=== PATIENT | female | born 1980 | race Caucasian/White ===

== ENCOUNTER 2021-05-30 11:27 | Emergency (ER) | payer OTHER ==
[2021-05-30] MEDS ORDERED: IOPAMIDOL-300 100 ML VIAL IVP ONE (11:28)
[2021-05-30] MEDS ORDERED: IOPAMIDOL-300 100 ML VIAL ONE (11:49)
--- NOTE | 2021-05-30 11:50 | ED Physician Documentation ---
PD HPI FOCAL NEURO - Stated complaint Stated Complaint: STROKE SYMPTOMS - Chief complaint Chief Complaint: Neuro - History obtained from History obtained from: Patient - History of Present Illness Timing - onset: Enter time (1030), Today Timing - duration: Hours Timing - details: Abrupt onset, Still present Severity of deficit: Mild Weakness: Left. No: Face, Arm, Hand, Leg, Foot Numbness: Hand, Left. No: Face, Arm, Leg, Foot Associated symptoms: No: Headache, Nausea / vomiting, Seizure, Syncope, Fall, Head injury, Chest pain, Neck pain, Back pain Contributing factors: positive: Other (as known PFO). negative: Anticoagulated, Vascular dz Baseline status: positive: A&OX3, ambulatory, indep Similar symptoms before: Diagnosis (TIA) Recently seen: Other (seen in urgent care and sent directly to the ED.) - Additional information Additional information: 40-year-old female who is visiting here from [place] has a prior history of TIA related to a patent foramen ovale. She had a TIA with expressive aphasia 7 years ago. She has had no intervening symptoms and she did not have repair done. This morning at 1030 she was in the kitchen when she began to develop some numbness to her left hand and a feeling of fogginess in her brain. She was examined at the urgent care found to have some incoordination of the left hand as well and she was sent to the emergency department for stroke evaluation. The patient's states that since her arrival here her symptoms are improved to where she only has some mild numbness to her hand. Review of Systems Constitutional: denies: Fever Eyes: denies: Decreased vision Ears: denies: Ear pain Nose: denies: Congestion Throat: denies: Sore throat Cardiac: denies: Chest pain / pressure, Palpitations Respiratory: denies: Dyspnea, Cough GI: denies: Abdominal Pain, Nausea, Vomiting, Constipation, Diarrhea : denies: Dysuria, Frequency Skin: denies: Rash Musculoskeletal: denies: Neck pain, Back pain, Extremity pain Neurologic: reports: Numbness. denies: Generalized weakness, Focal weakness, Difficulty speaking, Near syncope, Syncope, Confused, Altered mental status, Headache, Head injury, LOC PD PAST MEDICAL HISTORY - Allergies Allergies/Adverse Reactions: Allergies Allergy/AdvReac Type Severity Reaction Status Date / Time clindamycin Allergy Rash Verified 05/30/21 11:39 PD ED PE NORMAL - Vitals Vital signs reviewed: Yes (hypertensive) - General General: Alert and oriented X 3, No acute distress, Well developed/nourished - HEENT HEENT: Atraumatic, PERRL, EOMI - Neck Neck: Supple, no meningeal sign, No bony TTP - Cardiac Cardiac: RRR, No murmur - Respiratory Respiratory: No respiratory distress, Clear bilaterally - Abdomen Abdomen: Normal bowel sounds, Soft, Non tender, Non distended, No organomegaly - Back Back: No CVA TTP, No spinal TTP - Derm Derm: Normal color, Warm and dry, No rash - Extremities Extremities: No deformity, No edema - Neuro Neuro: Alert and oriented X 3, chemical cell changer 2-12 intact, No motor deficit, No sensory deficit, Normal speech Eye Opening: Spontaneous Motor: Obeys Commands Verbal: Oriented GCS Score: 15 - Psych Psych: Normal mood, Normal affect NIHSS - Time Time: 11:40 - Level of Consciousness Level of consciousness: (0) Alert, Keenly responsive LOC Questions: (0) Answers both Q's correct LOC Commands: (0) Performs both correctly - Gaze Best Gaze: (0) Normal - Visual Visual: (0) No loss - Facial Palsy Facial Palsy: (0) Normal, symmetrical movement - Motor Arms (both separate) Motor Arm (right): (0) No drift Motor Arm (left): (0) No drift - Motor Legs (both separate) Motor Leg (right): (0) No drift Motor Leg (left): (0) No drift - Limb Ataxia Limb Ataxia: (0) Absent - Sensory Sensory: (1) Exwa-qo-jouwwgob loss - Best Language Best Language: (0) No aphasia - Dysarthria Dysarthria: (0) Normal - Extinction and Inattention (formally neg Extinction and inattention: (0) No abnormality - Total Score/Results Total Score/Result: 1 Results - Vitals Vitals: Vital Signs - 24 hr 05/30/21 05/30/21 11:34 12:03 Temperature 37.6 C Heart Rate 79 67 Respiratory 19 13 Rate Blood Pressure 140/84 H 118/86 H O2 Saturation 100 98 Oxygen O2 Source Room air - EKG (time done) 1151 Rate: Rate (enter#) (73) Rhythm: NSR Ischemia: Normal ST segments Compare to prior EKG: Old EKG unavailable Computer interpretation: Agree with computer - Labs Labs: Laboratory Tests 05/30/21 05/30/21 05/30/21 12:01 12:01 13:00 WBC 4.5 L RBC 4.36 Hgb 13.7 Hct 40.5 MCV 92.9 MCH 31.4 H MCHC 33.8 RDW 13.3 Plt Count 267 MPV 9.7 Neut # (Auto) 2.0 Lymph # (Auto) 1.8 Bonner # (Auto) 0.4 Eos # (Auto) 0.2 Baso # (Auto) 0.1 Absolute Nucleated RBC 0.00 Nucleated RBC % 0.0 Sodium 137 Potassium 4.0 Chloride 101 Carbon Dioxide 27 Anion Gap 9.0 BUN 11 Creatinine 0.8 Estimated GFR (MDRD) 80 L Glucose 91 Calcium 9.1 Total Bilirubin 0.6 AST 30 ALT 23 Alkaline Phosphatase 40 L Total Protein 7.3 Albumin 4.4 Globulin 2.9 Albumin/Globulin Ratio 1.5 Lipase 31 Urine Color YELLOW Urine Clarity CLEAR Urine pH 7.5 Ur Specific [place] 1.015 Urine Protein NEGATIVE Urine Glucose (UA) NEGATIVE Urine Ketones NEGATIVE Urine Occult Blood TRACE-INTA Urine Nitrite NEGATIVE Urine Bilirubin NEGATIVE Urine Urobilinogen 0.2 (NORMAL) Ur Leukocyte Esterase NEGATIVE Ur Microscopic Review NOT INDICATED Urine Culture Comments NOT INDICATED Urine HCG, Qual NEGATIVE PD MEDICAL DECISION MAKING - ED course Complexity details: reviewed results, re-evaluated patient, considered differential, d/w patient, d/w intelligence consultant ( neuro-stroke doctor recommends angios and holding tpA ) ED course: 40-year-old female with a prior TIA and known history of patent foramen ovale has symptoms consistent with another TIA today with some fogging of her sensorium, numbness and clumsiness to the left hand. The sensorium has cleared the clumsiness to the hand is cleared the strength is normal. She has some sensation of the hand continuing to wake. I discussed the case with the on-call stroke doctor Dr. Graves and she recommends administration of aspirin and a follow-up with her neurologist for repeat MRI. Departure - Departure Disposition: 01 Home, Self Care Clinical Impression: TIA (transient ischemic attack) Condition: Stable Instructions: ED Transient Ischemic Attack Follow-Up: Your, neurologist and rn house supervisor [Other] Comments: Christiano, today it looks like you have had another TIA. The expectation is to have full recovery. The recommendation from Dr. Graves is to take an aspirin 81 mg daily and to follow-up with your neurologist regarding a repeat MRI of the brain. Consider a repair of the patent foramen ovale and discussed this with your rn house supervisor.
--- NOTE | 2021-05-30 12:02 | CT Report ---
PROCEDURE: Head W/O Stroke Protocol INDICATIONS: stoke s/sx TECHNIQUE: Noncontrast 4.5 mm thick angled axial sections acquired from the foramen magnum to the vertex, with c oronal reformats. For radiation dose reduction, the following was used: automated exposure control, adjustment of mA and/or kV according to patient size. COMPARISON: FINDINGS: Image quality: Excellent. CSF spaces: Basal cisterns are patent. No extra-axial fluid collections. Ventricles are normal in size and shape. Brain: No midline shift. No intracranial masses or hemorrhage. [place]-white matter interface is norm al. Skull and face: Calvarium and visualized facial bones are intact, without suspicious lesions. Sinuses: Visualized sinuses and mastoids are clear. IMPRESSION: CT head without acute intracranial abnormalities. No mass or mass effect. Findings were discussed telephonically with Dr. Nugent at 1200 hrs PST This study fulfills neurological imaging criteria for inclusion or exclusion of acute stroke therapie s based on available published neurological imaging guidelines. Reviewed by: Johnson Alonzo MD on 05/30/2021 12:01 PM PST Approved by: Johnson Alonzo MD on 05/30/2021 12:01 PM PST Station ID: [id number]
[2021-05-30 12:08] LABS: BASOPHILS # (AUTO) 0.1 10^3/uL (0.0-0.1); BASOPHILS % (AUTO) 1.1 %; EOSINOPHILS # (AUTO) 0.2 10^3/uL (0.0-0.7); EOSINOPHILS % (AUTO) 5.4 %; HCT - HEMATOCRIT 40.5 % (37.0-47.0); HGB - HEMOGLOBIN 13.7 g/dL (12.0-16.0); LYMPHOCYTES # (AUTO) 1.8 10^3/uL (1.5-3.5); LYMPHOCYTES % (AUTO) 40.6 %; MEAN CORPUSCULAR HEMOGLOBIN 31.4 pg (27.0-31.0); MEAN CORPUSCULAR HGB CONC 33.8 g/dL (32.0-36.0); MEAN CORPUSCULAR VOLUME 92.9 fL (81.0-99.0); MEAN PLATELET VOLUME 9.7 fL (7.9-10.8); MONOCYTES # (AUTO) 0.4 10^3/uL (0.0-1.0); NEUTROPHILS % (AUTO) 43.7 %; PLT - PLATELET COUNT 267 10^3/uL (130-450); RED BLOOD COUNT 4.36 10^6/uL (4.20-5.40); RED CELL DISTRIBUTION WIDTH 13.3 % (12.0-15.0); WHITE BLOOD COUNT 4.5 x10^3/uL (4.8-10.8)
[2021-05-30 12:21] LABS: ALBUMIN 4.4 g/dL (3.2-5.5); ALBUMIN/GLOBULIN RATIO 1.5 (1.0-2.2); BILIRUBIN,TOTAL 0.6 mg/dL (0.2-1.0); CALCIUM 9.1 mg/dL (8.5-10.3); CREATININE 0.8 mg/dL (0.4-1.0); TOTAL PROTEIN 7.3 g/dL (6.7-8.2)
--- NOTE | 2021-05-30 12:49 | CT Report ---
PROCEDURE: ANGIO HEAD W/WO INDICATIONS: L hand numbness CONTRAST: IV CONTRAST: Isovue 300 ml: 80 PO CONTRAST: *NO PO CONTRAST TECHNIQUE: Precontrast 4.5 mm thick angled axial sections acquired from the foramen magnum to the vertex. Afte r the administration of intravenous contrast, 1 mm thick sections acquired through the [place] is. Postcontrast 4.5 mm thick sections then re-acquired from the foramen magnum to the vertex. 3-di mensional rjhjuqb-npzmrayhl-ykefzqagfi (MIP) and/or volume rendering reformats were acquired of the c entral intracranial vasculature. For radiation dose reduction, the following was used: automated ex posure control, adjustment of mA and/or kV according to patient size. COMPARISON: CT head 05/30/2021. FINDINGS: Image quality: Excellent. Anterior circulation: Intracranial internal carotid arteries are normal in size and flow. The flow within the paired anterior cerebral arteries is normal and symmetric. The flow within the middle cer ebral arteries is normal and symmetric. The anterior communicating artery is seen. No aneurysms are seen. Posterior circulation: Visualized portions of the vertebral arteries demonstrate normal caliber, and join to form a normal appearing basilar artery. Flow within the posterior cerebral arteries is norm al and symmetric. No aneurysms are seen. CSF spaces: Ventricles are normal in size and shape. Basal cisterns are patent. No extra-axial flu id collections. Brain: No midline shift. No intracranial bleeds or masses. [place]-white matter interface appears int act. Skull and face: Calvarium and facial bones appear intact, without suspicious lesions. Sinuses: Visualized sinuses and mastoids are clear. IMPRESSION: 1. No acute intracranial disease process. 2. No large vessel occlusion, vascular stenosis, vascular dissection or aneurysm . Reviewed by: Alessandra Gutierrez MD, PhD on 05/30/2021 12:47 PM PST Approved by: Alessandra Gutierrez MD, PhD on 05/30/2021 12:47 PM PST Station ID: [id number]
[2021-05-30] MEDS ORDERED: ASPIRIN 325 MG TABLET PO STA (12:54)
--- NOTE | 2021-05-30 12:56 | CT Report ---
PROCEDURE: ANGIO NECK W INDICATIONS: L hand numbness CONTRAST: IV CONTRAST: Isovue 300 ml: 80 PO CONTRAST: *NO PO CONTRAST TECHNIQUE: After the administration of intravenous contrast, 1.5 mm axial sections acquired from the aortic arch to the [place]. Coronal 3-D maximum intensity projection (MIP) and/or volume rendering ref ormats were then performed. For radiation dose reduction, the following was used: automated exposur e control, adjustment of mA and/or kV according to patient size. COMPARISON: None. FINDINGS: Image quality: Excellent. Carotid system: The great vessels demonstrate a conventional anatomy as they arise from the aortic a [facility]. The origins of the common carotid arteries appear patent. The common carotid arteries demonstr ate normal calibers and courses. The bifurcation regions appear normal bilaterally. The internal ca rotid arteries demonstrate normal caliber and course. Posterior circulation: The origins of the vertebral arteries appear patent. The more superior porti ons of the vertebral arteries demonstrate normal course and caliber. They join to form a normal appe aring basilar artery. Soft tissues: Visualized neck soft tissues demonstrate no suspicious abnormalities. The thyroid is normal in size and contains a 4 mm hypoattenuating nodule in the right lobe. Bones: No suspicious bony lesions. Visualized cervical spine appears normally aligned. IMPRESSION: No large vessel occlusion, vascular stenosis, vascular dissection or aneurysm. The estimate of stenosis included in the report of the imaging study was calculated using the NASCET method Reviewed by: Alessandra Gutierrez MD, PhD on 05/30/2021 12:55 PM PST Approved by: Alessandra Gutierrez MD, PhD on 05/30/2021 12:55 PM PST Station ID: [id number]
[2021-05-30 13:11] LABS: BILIRUBIN,URINE NEGATIVE (NEGATIVE); GLUCOSE, URINE (UA) NEGATIVE (NEGATIVE); KETONES,URINE (UA) NEGATIVE (NEGATIVE); LEUKOCYTE ESTERASE, URINE NEGATIVE (NEGATIVE); NITRITE,URINE NEGATIVE (NEGATIVE); OCCULT BLOOD,URINE TRACE-INTA (NEGATIVE); PH,URINE 7.5 PH (5.0-7.5); PROTEIN,URINE NEGATIVE (NEGATIVE); UROBILINOGEN,URINE 0.2 (NORMAL) E.U./dL (NORMAL)
[2021-05-30 13:15] LABS: CLARITY,URINE CLEAR (CLEAR); HCG UR QUAL NEGATIVE
[2021-05-30 13:42] VITALS: BP 118/80
== END 2021-05-30 13:42 | disposition home or self-care (01) ==
LOC: ED 11:27
DX: G45.9 Transient cerebral ischemic attack, unspecified (principal); Q21.1 Atrial septal defect
CPT/HCPCS: 36415; 70450; 70496; 70498; 80053; 81003; 81025; 83690; 85025; 93005; 99283; 99284; A9270; Q9967; 81001; 87086